=== PATIENT | male | born 1950 | race African-American/Black ===

== ENCOUNTER 2016-06-15 18:28 | Inpatient (IN) | payer SELFPAY ==
[~2016-06-15] VITALS: Ht 182.9 cm; Wt 92.5 kg
[~2016-06-15 18:28] MED LIST: BUPR75TA8 PO; QUET300T2 PO
[2016-06-15] MEDS ORDERED: SODIUM CHLORIDE 0.9% 1,000 ML IV ONE (18:35)
[2016-06-15] MEDS ORDERED: METHYLPREDNISOLONE SOD SUCC 125 MG/2 ML VIAL IV STA (18:35)
[2016-06-15] MEDS ORDERED: IPRATROPIUM BROMIDE (0.02%) 0.5MG/2.5ML NEB HHN STA (18:35)
[2016-06-15] MEDS ORDERED: ALBUTEROL (0.083%) 2.5MG/3ML NEB HHN STA (18:35)
[2016-06-15] MEDS ORDERED: MAGNESIUM 2 G PREMIX 50 ML IV ONE (18:45)
[2016-06-15] MEDS ORDERED: LEVOFLOXACIN 500MG PREMIX 100 ML IV ONE (18:45)
[2016-06-15 19:19] LABS: BASOPHILS % 0.9 % (0.0-2.0); EOSINOPHILS % 0.3 % (0.0-5.0); HEMATOCRIT. 42.5 % (42.0-52.0); HEMOGLOBIN. 14.2 g/dL (14.0-18.0); LYMPHOCYTES % 9.2 % (20.0-50.0); MEAN CORPUSCULAR HEMOGLOBIN 29.4 pg (28.0-32.0); MEAN CORPUSCULAR HGB CONC 33.5 g/dL (31.0-37.0); MEAN CORPUSCULAR VOLUME 87.9 fL (80.0-94.0); MEAN PLATELET VOLUME 8.8 fl (7.4-10.4); NEUTROPHILS % 85.6 % (40.0-76.0); PLATELET 264 x1000/uL (130-400); RED BLOOD CELL COUNT 4.84 mill/uL (4.7-6.1); RED CELL DISTRIBUTION WIDTH 13.4 % (11.6-14.6); WHITE BLOOD COUNT 8.9 x1000/uL (4.5-11.0)
[2016-06-15 19:20] LABS: INR 1.1; PROTHROMBIN TIME 11.3 sec
[2016-06-15 19:23] LABS: ALBUMIN 3.3 g/dL (3.4-5.0); ANION GAP 16; CALCIUM 9.3 mg/dL (8.5-10.1); CARBON DIOXIDE 28 mEq/L (21-32); CHLORIDE 98 mEq/L (98-107); INDEX HEMOLYSI 1 (1-3); INDEX ICTERIC 1 (1-4); INDEX LIPEMIC 1 (1-3); LIPASE 67 IU/L (73-393); UREA NITROGEN BLOOD 13 mg/dL (7-21)
[2016-06-15 19:28] LABS: ALANINE AMINOTRANSFERASE 10 IU/L (13-61); eGFR > 60 mL/min (>60)
[2016-06-15 19:30] LABS: NT PRO B-TYPE NATRIURETIC PEP 269 pg/mL (5-125)
[2016-06-15] MEDS ORDERED: DIPHENHYDRAMINE 50MG/ML VIAL IV PRN (20:15)
[2016-06-15] MEDS ORDERED: NA PHOS,M-B/NA PHOS,DI-BA ENEMA 118ML PR PRN (20:15)
[2016-06-15] MEDS ORDERED: CLONIDINE 0.1MG TABLET PO PRN (20:15)
[2016-06-15] MEDS ORDERED: IPRATROPIUM/ALBUTEROL 0.5-3(2.5)MG/3ML NEB INH PRN (20:15)
[2016-06-15] MEDS ORDERED: TRAMADOL 50MG TABLET PO PRN (20:15)
[2016-06-15] MEDS ORDERED: ONDANSETRON HCL 4MG/2ML VIAL IV PRN (20:15)
[2016-06-15] MEDS ORDERED: MAGNESIUM/ALUMINUM HYDROXIDE/SIMETHICONE 30ML UDC PO PRN (20:15)
[2016-06-15] MEDS ORDERED: LORAZEPAM 2MG/ML CPJ IV PRN (20:15)
[2016-06-15] MEDS ORDERED: ZOLPIDEM TARTRATE 5MG TABLET PO PRN (20:15)
[2016-06-15] MEDS ORDERED: IPRATROPIUM/ALBUTEROL 0.5-3(2.5)MG/3ML NEB HHN SCH (20:15)
[2016-06-15] MEDS ORDERED: DOCUSATE SODIUM 100MG CAPSULE PO PRN (20:15)
[2016-06-15] MEDS ORDERED: ACETAMINOPHEN 325MG TABLET PO PRN (20:15)
[2016-06-15] MEDS: NITROGLYCERIN 0.4MG TABLET SL SL PRN ×2 (22:00→22:17)
[2016-06-15 23:15] VITALS: BP 127/83
[2016-06-15 23:40] VITALS: BP 127/83
[2016-06-16] VITALS: BP 120/78
[2016-06-16] MEDS: OSELTAMIVIR 75MG CAPSULE PO SCH ×3 (00:24→21:07)
[2016-06-16] MEDS: METHYLPREDNISOLONE SOD SUCC 125 MG/2 ML VIAL IV SCH ×4 (00:24→21:07)
[2016-06-16] MEDS: GUAIFENESIN 200MG/10ML SUGAR FREE UDC PO PRN ×2 (00:26→09:02)
[2016-06-16 00:45] LABS: CREATINE KINASE 55 IU/L (39-308); CREATINE KINASE MB FRACTION < 0.5 ng/mL (0.5-3.6); INDEX HEMOLYSI 1 (1-3); TROPONIN I 0.07 ng/mL (0.00-0.04)
[2016-06-16] MEDS ORDERED: METF500T4 PO (03:40)
[2016-06-16 04:00] VITALS: BP 121/74
[2016-06-16] MEDS: KETOROLAC 15MG/ML VIAL IV PRN ×4 (04:27→22:44)
[2016-06-16] MEDS: GUAIFENESIN/DM 600MG/30MG ER TAB 12HR PO SCH ×3 (04:37→21:07)
[2016-06-16 06:42] LABS: CREATINE KINASE 61 IU/L (39-308); CREATINE KINASE MB FRACTION < 0.5 ng/mL (0.5-3.6); INDEX HEMOLYSI 1 (1-3); TROPONIN I 0.06 ng/mL (0.00-0.04)
[2016-06-16] MEDS: CARVEDILOL 3.125 MG TABLET PO SCH ×2 (06:54→18:56)
[2016-06-16 07:19] LABS: CLARITY URINE CLEAR (CLEAR); COLOR URINE YELLOW (YELLOW); GLUCOSE URINE 2+ (NEGATIVE); KETONES URINE NEGATIVE (NEGATIVE); LEUKOCYTE ESTERASE URINE NEGATIVE (NEGATIVE); NITRITE URINE NEGATIVE (NEGATIVE); OCCULT BLOOD URINE TRACE (NEGATIVE); PROTEIN URINE 2+ (NEGATIVE); SPECIFIC GRAVITY URINE 1.012 (1.005-1.030); UROBILINOGEN URINE 0.2 E.U./dL (0.2-1.0)
[2016-06-16 07:21] LABS: BACTERIA URINE NONE SEEN; CALCIUM PHOSPHATE CRYSTALS UR NONE SEEN /lpf; RBC URINE 0-2 /hpf (0-2); SQUAMOUS EPITHELIAL CELL URINE NONE SEEN /lpf (RARE/1+); WAXY CASTS URINE NONE SEEN /lpf; WBC URINE NONE SEEN /hpf (0-2); YEAST URINE NONE SEEN
[2016-06-16 07:52] LABS: *AMPHETAMINES SCREEN URINE NEGATIVE (NEGATIVE); *BARBITURATES SCREEN URINE NEGATIVE (NEGATIVE); *BENZODIAZEPINES SCREEN URINE NEGATIVE (NEGATIVE); *COCAINE SCREEN URINE PRESUMTIVE POSITIVE (NEGATIVE); CANNABINOID URINE SCREEN NEGATIVE (NEGATIVE); ECSTASY MDMA SCREEN URINE NEGATIVE (NEGATIVE); METHADONE URINE SCREEN NEGATIVE (NEGATIVE); OPIATES URINE SCREEN NEGATIVE (NEGATIVE); PHENCYCLIDINE URINE SCREEN NEGATIVE (NEGATIVE)
[2016-06-16 08:00] VITALS: BP 127/78
[2016-06-16] MEDS ORDERED: CEFTRIAXONE 1 G PREMIX 50 ML IV SCH (09:00)
[2016-06-16] MEDS: PANTOPRAZOLE SODIUM 40 MG/VIAL IV SCH (09:03)
[2016-06-16] MEDS: ASPIRIN 325MG EC TABLET PO SCH (09:03)
[2016-06-16] MEDS: ENOXAPARIN 40MG/0.4ML SYR SUBCUT SCH (09:08)
[2016-06-16] MEDS: ZINC SULFATE 220 MG ( 50 ) CAPSULE PO SCH (09:08)
[2016-06-16] MEDS ORDERED: DEXTROSE 50% WATER 50ML SYRINGE IV PRN (11:00)
[2016-06-16 12:00] VITALS: BP 156/79
[2016-06-16] MEDS: BLOOD SUGAR DIAGNOSTIC STRIP TEST SCH ×3 (12:34→21:08)
[2016-06-16] MEDS: INSULIN LISPRO 100 UNITS/ML SUBCUT SCH ×3 (12:35→22:16)
[2016-06-16 16:00] VITALS: BP 119/82
[2016-06-16 20:00] VITALS: BP 139/81
[2016-06-16] MEDS ORDERED: LEVOFLOXACIN 500MG PREMIX 100 ML IV SCH ×2 (20:00→20:15)
[2016-06-17] VITALS: BP 133/77
[2016-06-17 04:00] VITALS: BP 151/95
[2016-06-17] MEDS: METHYLPREDNISOLONE SOD SUCC 125 MG/2 ML VIAL IV SCH ×2 (05:24→11:58)
[2016-06-17] MEDS: KETOROLAC 15MG/ML VIAL IV PRN (05:25)
[2016-06-17] MEDS: CARVEDILOL 3.125 MG TABLET PO SCH (05:26)
[2016-06-17] MEDS: BLOOD SUGAR DIAGNOSTIC STRIP TEST SCH ×2 (06:54→11:57)
[2016-06-17 08:00] VITALS: BP 129/86
[2016-06-17] MEDS: PANTOPRAZOLE SODIUM 40 MG/VIAL IV SCH (08:50)
[2016-06-17] MEDS: ENOXAPARIN 40MG/0.4ML SYR SUBCUT SCH (08:51)
[2016-06-17] MEDS: ASPIRIN 325MG EC TABLET PO SCH (08:51)
[2016-06-17] MEDS: GUAIFENESIN/DM 600MG/30MG ER TAB 12HR PO SCH (08:51)
[2016-06-17] MEDS: ZINC SULFATE 220 MG ( 50 ) CAPSULE PO SCH (08:51)
[2016-06-17] MEDS: OSELTAMIVIR 75MG CAPSULE PO SCH (08:51)
[2016-06-17] MEDS ORDERED: CEFTRIAXONE 1 G PREMIX 50 ML IV SCH (09:00)
[2016-06-17] MEDS: INSULIN LISPRO 100 UNITS/ML SUBCUT SCH ×2 (09:02→12:13)
[2016-06-17 11:37] VITALS: BP 133/86
== END 2016-06-17 12:30 | disposition home or self-care (01) | DRG 140 ==
LOC: ER 18:55 → 6WST 19:26
PROVIDERS: ADMIT Internal Medicine; ATTEND Internal Medicine
DX: J44.0 Chronic obstructive pulmonary disease with (acute) lower respiratory infection (principal); J18.9 Pneumonia, unspecified organism; J44.1 Chronic obstructive pulmonary disease with (acute) exacerbation; E44.1 Mild protein-calorie malnutrition; E11.9 Type 2 diabetes mellitus without complications; I10 Essential (primary) hypertension; F14.10 Cocaine abuse, uncomplicated; F20.9 Schizophrenia, unspecified; Z68.27 Body mass index [BMI] 27.0-27.9, adult; Z59.0 Homelessness
CPT/HCPCS: 36415; 71010; 74176; 80053; 80061; 80305; 81001; 82550; 82553; 82962; 83036; 83605; 83690; 83880; 84484; 85025; 85610; 87040; 87086; 87804; 93005; 93306; 93970; 94644; 96361; 96374; 96375; 96376; 99291; C9113; J0696; J1650; J1815; J1885; J1956; J2930; J3475; J7030; J7050; J7611; J7620